=== PATIENT | male | born 1955 | race African-American/Black ===

== ENCOUNTER 2020-06-06 19:02 | Inpatient (IN) | payer OTHER ==
[~2020-06-06] VITALS: Ht 203.2 cm; Wt 125.4 kg
[2020-06-06 19:20] VITALS: BP 117/68
[2020-06-06 19:46] LABS: ANION GAP 13 mmol/L (7-16); BUN 19 mg/dL (7-18); CALCIUM 9.8 mg/dL (8.5-10.1); CHLORIDE 103 mmol/L (98-107); CO2 23 mmol/L (21-32); CREATININE 1.6 mg/dL (0.7-1.3); GLUCOSE 131 mg/dL (74-106); POTASSIUM 3.6 mmol/L (3.5-5.1); SODIUM 139 mmol/L (136-145)
[2020-06-06 19:47] LABS: ABSOLUTE NEUTROPHILS 15.1 thou/uL (1.4-8.2); BASOPHILS 0.2 % (0.0-2.0); HEMATOCRIT 45.1 % (42.0-52.0); HEMOGLOBIN 15.1 gm/dL (14.0-18.0); LYMPHOCYTES 1.5 % (24.0-44.0); MCH 31.7 pg (26.0-34.0); MCHC 33.6 g/dL (28.0-37.0); MCV 94.6 fL (80.0-100.0); MONOCYTES 7.3 % (1.0-8.0); RBC 4.77 mil/uL (4.50-6.00); WBC 16.6 thou/uL (4.0-11.0)
[2020-06-06 19:55] LABS: ALBUMIN 3.4 g/dL (3.4-5.0); DIRECT BILIRUBIN 0.2 mg/dL (<0.1-0.2); LIPASE 65 U/L (73-393); TOTAL BILIRUBIN 0.5 mg/dL (0.2-1.0); TOTAL PROTEIN 7.4 g/dL (6.4-8.2)
[2020-06-06 20:15] LABS: SGOT 16 U/L (15-37); SGPT 24 U/L (30-65); TROPONIN-I <0.06 ng/mL (<0.06)
[2020-06-06 20:22] LABS: PLATELET COUNT 109 thou/uL (150-400)
[2020-06-06 20:23] LABS: PLATELET ESTIMATE NORMAL
[2020-06-06 20:59] LABS: URINE BILIRUBIN NEGATIVE (Negative); URINE BLOOD 1+ (Negative); URINE CLARITY CLEAR; URINE COLOR YELLOW; URINE GLUCOSE-RANDOM* NEGATIVE (Negative); URINE KETONES NEGATIVE (Negative); URINE PROTEIN (DIPSTICK) 2+ (Negative); URINE SPECIFIC GRAVITY >= 1.030 (1.005-1.035); URINE UROBILINOGEN 0.2 E.U./dl (0.2-1.0)
[2020-06-06 21:16] LABS: URINE LEUKOCYTES-REFLEX 1+ (Negative); URINE NITRITE-REFLEX POSITIVE (Negative)
[2020-06-06 21:18] LABS: BACTERIA-REFLEX >30 Many /HPF (None Seen); CASTS None Seen /LPF (None Seen); CRYSTALS None Seen /LPF (None Seen); MUCUS 0-3 Light strn/LPF (None Seen); SQUAMOUS None Seen /LPF (0-3)
[2020-06-06 23:50] VITALS: BP 126/69
[2020-06-07] VITALS (8 sets, daily range): BP systolic 117–189; BP diastolic 69–92
--- NOTE | 2020-06-07 00:12 | NUR ---
ATTEMPTED TO CALL REPORT AT 0012 - IN ROOM STARTING IV
[2020-06-07] MEDS ORDERED: ADVAIR 250-501 EACH INH (00:17)
[2020-06-07] MEDS ORDERED: LIPITOR20 MG PO (00:18)
[2020-06-07] MEDS ORDERED: ASA81BEC PO (00:18)
[2020-06-07] MEDS ORDERED: HYDRALAZINE 2525 M1 PO (00:18)
[2020-06-07] MEDS ORDERED: VITAMIN C500 M2 PO (00:18)
[2020-06-07] MEDS ORDERED: LISINOPRIL20 MG PO (00:18)
[2020-06-07] MEDS ORDERED: PLAVIX 75 MG TA75 MG PO (00:19)
[2020-06-07] MEDS ORDERED: LOPRESSOR100 M1 PO (00:19)
[2020-06-07] MEDS ORDERED: MELATONIN3 M2 PO (00:19)
[2020-06-07] MEDS ORDERED: VENTOLIN HFA 1818 GM INH (00:19)
[2020-06-07] MEDS ORDERED: VITAMIN D325 MC3 PO (00:20)
[2020-06-07] MEDS ORDERED: TYLENOL EXTRA500 MG PO (00:20)
[2020-06-07] MEDS ORDERED: vitamin d3 PO (04:51)
--- NOTE | 2020-06-07 07:45 | NUR ---
Arrived from ER around 0145. Able to answer orientation questions though he responds slow at times. Med rec verified per record. Tolerating room air well with no respiratory distress. Cont. on enhanced precaution,afebrile. Negative COVID PCR reported to [employer] and equipment operator warehouse. Second swab ordered. Pt. has been straight cathed in ER so has not voided since arrival on the floor. urinal provided. Bed alarm on for safety. SCD's in place. Cardiology consult called by US.
[2020-06-07 08:28] LABS: HEMATOCRIT 44.9 % (42.0-52.0); HEMOGLOBIN 14.9 gm/dL (14.0-18.0); MCH 31.8 pg (26.0-34.0); MCHC 33.1 g/dL (28.0-37.0); MCV 95.8 fL (80.0-100.0); RBC 4.69 mil/uL (4.50-6.00); RDW 13.3 % (10.5-14.5); WBC 10.7 thou/uL (4.0-11.0)
[2020-06-07 08:35] LABS: POTASSIUM 4.2 mmol/L (3.5-5.1)
[2020-06-08 00:18] VITALS: BP 132/67
--- NOTE | 2020-06-08 04:08 | NUR ---
Second COVID PCR swab sent to lab last night. Positive results reported to Kimberly Berrios NP and nsg prepress supervisor. Cont. on enhanced precaution , afebrile. Tolerating room air well, no respiratory distress. Elevated BP at HS better after scheduled BP meds. Voided per urinal.
[2020-06-08 04:40] LABS: HEMATOCRIT 40.3 % (42.0-52.0); HEMOGLOBIN 13.4 gm/dL (14.0-18.0); MCH 31.7 pg (26.0-34.0); MCHC 33.2 g/dL (28.0-37.0); MCV 95.4 fL (80.0-100.0); RBC 4.23 mil/uL (4.50-6.00); RDW 13.2 % (10.5-14.5); WBC 8.1 thou/uL (4.0-11.0)
[2020-06-08 04:57] LABS: CALCIUM 8.6 mg/dL (8.5-10.1); CREATININE 1.1 mg/dL (0.7-1.3); MAGNESIUM 1.8 mg/dL (1.8-2.4); POTASSIUM 3.6 mmol/L (3.5-5.1)
[2020-06-08 05:28] VITALS: BP 120/62
[2020-06-08 07:54] VITALS: BP 113/59
--- NOTE | 2020-06-08 09:50 | HC ---
[facility] [place] [address] CONSULTATION Name: ESTEBANRADHA Room #: 359- ADM IN M.R.#: [id number] Admission: 06/06/20 Attend Phys: Isra Davies MD Discharge: Date of : 51 Report #: [id number] THIS REPORT FOR: cc: Loren Hewitt MD, Ramilo MD Park,Nito Burnette MD ~ DATE OF SERVICE: 06/07/2020 INDICATION: Near syncope. HISTORY OF PRESENT ILLNESS: This is a 64-year-old gentleman with a history of COPD, CAD, hypertension, cognitive communication deficit, who was transferred from [facility] after falling. The patient reports that he just fell to the ground, denies any loss of consciousness. He hit his head when he fell. He denies any recent episodes of chest pain, shortness of breath, palpitations or lightheadedness. In the ED, he was diagnosed with a UTI. Initial temperature was 102.1. ALLERGIES: None. PAST MEDICAL HISTORY: Cognitive communication deficit, history of CAD, COPD, hypertension. SOCIAL HISTORY: Negative for tobacco use. FAMILY HISTORY: Unknown. REVIEW OF SYSTEMS: A full 10-point review of systems performed. Only the pertinent positives and negatives are described in the HPI. PHYSICAL EXAMINATION: VITAL SIGNS: Blood pressure is 130/70, heart rate is 80 beats per minute. GENERAL APPEARANCE: This is a well-developed, well-nourished male in no acute distress. HEENT: Normocephalic, atraumatic. Oral mucosa moist. NECK: Supple. LUNGS: Clear to auscultation. CARDIAC: Regular rate and rhythm, S1, S2 positive. ABDOMEN: Soft, nontender. EXTREMITIES: No cyanosis, no edema. ECG reveals sinus rhythm. LABORATORY VALUES: White count is 10.7, creatinine is 1.6. Troponin is negative. [facility] [address] [place] [address] CONSULTATION Name: RADHA ORELLANA Room #: 359-P [facility] IN Myrna#: [id number] Admission: 06/06/20 Attend Phys: Isra Davies MD Discharge: Date of : 51 Report #: [id number] ASSESSMENT AND PLAN: 1. Near syncopal episode, the patient denies any loss of consciousness, probably from recent urinary tract infection. Hydrated and treat with antibiotics. Check echo. 2. Coronary artery disease, stable with no anginal complaints. 3. Hypertension, continue meds. <ELECTRONICALLY SIGNED> By: Nito Lombardo MD 06/08/20 0950 [id number] [id number] Nito Lombardo MD /nt
[2020-06-08 11:16] VITALS: BP 122/80
[2020-06-08 15:55] VITALS: BP 152/80
--- NOTE | 2020-06-08 16:23 | NUR ---
INITIAL ASSESSMENT: Received consult for discharge planning. ANTOINE reviewed chart and spoke with nursing and attending physician. Pt was admitted from [facility]. Placed in Enhanced Isolation due to positive COVID-19 test. Pt with low grade fever and not requiring O2. Pt is on IV abx and IV steroids. Discharge back to [place] is anticipated in 1-2 days. ANTOINE placed call to pt's room. No answer. ANTOINE left voice message for pt's [id number], Lanny. ANTOINE faxed clinical info to [facility] post-acute liaison for review. Pt has not tested positive at the facility. [facility] is able to accept pt back when medically stable. ANTOINE is following to assist as needed with discharge planning.
[2020-06-08 19:43] VITALS: BP 147/82
[2020-06-09 03:54] VITALS: BP 138/81
--- NOTE | 2020-06-09 04:58 | NUR ---
Slept intermittently though better than the previous night. Tolerating room air well. Afebrile. New IV placed on right hand. Voiding per urinal. Bed alarm on for safety.
--- NOTE | 2020-06-09 07:15 | EKG ---
[place] [address] [place] [address] ELECTROCARDIOGRAM REPORT Name: ESTEBANRADHA Room #: 359-P ADM IN M.R.#: [id number] Admission: 06/06/20 Attend Phys: Isra Davies MD Discharge: Date of : 51 Report #: [id number] [facility] ED Test Date: 2020-06-06 Test Time: 20:21:24 Pat Name: RADHA ORELLANA Department: Room: 359 Gender: M Nursing Surgical Services Director: : 1955 Requested By: Sandoval Sanchez Order Number: [id number] MD: Gregorio Gomez Measurements Intervals [place] Rate: 87 P: 50 [place]: 148 QRS: 66 QRSD: 141 T: 66 QT: 380 QTc: 457 Interpretive Statements Sinus rhythm Probable left atrial enlargement Right bundle branch block Abnormal lateral Q waves Baseline wander in lead(s) III,V6 No previous ECG available for comparison Electronically Signed On 06-09-2020 7:15:03 [employer]ARLY [employer] TEACHER ASSISTANT by Gregorio Gomez [email or web address] <ELECTRONICALLY SIGNED> By: Gregorio Gomez MD, [facility] 06/09/20714 20 20 Gregorio Gomez MD, FACC /EPI
[2020-06-09 07:20] VITALS: BP 143/84
--- NOTE | 2020-06-09 10:51 | NUR ---
ANTOINE reviewed chart and spoke with nursing and attending physician. Pt remains in Enhanced Isolation due to COVID-19. Pt is afebrile and not requiring O2. Pt is on IV abx and IV steroids. Therapy ordered today to evaluate pt for discharge needs. Discharge back to [facility] is anticipated for tomorrow. ANTOINE received call back from pt's [id number], Lanny, who requested for ANTOINE to contact pt's brother, Rob ([phone]). ANTOINE spoke with Rob via phone. Introduced role of ANTOINE. Rob states pt has lived at [facility] for the past several years. Confirmed plan is for pt to return to [place] when medically stable. ANTOINE updated [place] post-acute liaison. Pt will return using his skilled benefit. ANTOINE is following to assist as needed with discharge planning.
[2020-06-09 11:11] VITALS: BP 145/79
[2020-06-09 15:11] VITALS: BP 154/89
--- NOTE | 2020-06-09 18:27 | NUR ---
[facility] PATIENT CARE AT 0700. UP AD MARYA IN ROOM. NO DISDRESS NOTED. PROGRESSING TOWARDS POC GOALS.
[2020-06-09 19:59] VITALS: BP 180/88
[2020-06-10 04:39] VITALS: BP 157/92
--- NOTE | 2020-06-10 04:59 | NUR ---
PT MAKING SLOW PROGRESS TOWARDS GOALS. PT STATING THAT HE BELIEVES HE IS BREATHING EASIER COMPARED TO WHEN HE WAS ADMITTED. DENIES ANY SOA THROUGHOUT THE NIGHT. DIMINISHED LUNGS SOUNDS ON THE RIGHT, NOTED COARSENESS OVER THE LEFT SIDE. AT THE TIME, PT IN BED LYING ON HIS LEFT SIDE AT TIME OF ASSESSMENT.
[2020-06-10 07:33] VITALS: BP 170/88
[2020-06-10 11:10] VITALS: BP 145/73
[2020-06-10] MEDS ORDERED: ZINC SULFATE 2220 MG PO (12:32)
[2020-06-10] MEDS ORDERED: KEFLEX500 M1 PO (12:32)
--- NOTE | 2020-06-10 13:38 | NUR ---
DISCHARGE NOTE: SW reviewed chart and spoke with nursing and attending physician. Pt remains in Enhanced Isolation due to COVID-19. Pt is medically stable for discharge back to [facility] today. SW faxed finalized discharge orders/summary to the facility and notified [facility] post-acute liaison. Wheelchair van transportation scheduled for [id number] per facility's arrangements. Chart copy requested. SW left voice message for pt's brother, Rob, to notify of discharge plan. Nursing provided with number to call report. No additional SW needs identified at this time, but is available to assist should needs arise.
== END 2020-06-10 14:41 | disposition home or self-care (01) | DRG 871 ==
LOC: ER 19:02 → EROBS 22:12 → 3W 22:12
PROVIDERS: Nurse Practitioner; Nurse Practitioner Family; ADMIT Internal Medicine; ATTEND Internal Medicine
DX: A41.51 Sepsis due to Escherichia coli [E. coli] (principal); U07.1 COVID-19; N39.0 Urinary tract infection, site not specified; R55 Syncope and collapse; J44.9 Chronic obstructive pulmonary disease, unspecified
CPT/HCPCS: 10879